=== PATIENT | female | born 1955 | race African-American/Black ===

== ENCOUNTER 2017-02-17 07:17 | Emergency (ER) | payer SELFPAY ==
[~2017-02-17 07:17] MED LIST: ACETAMINOPHEN PO; AUGMENTIN PO; DARVOCET-N 1001 TAB PO; DOXYCYCLINE PO; FLAGYL PO; KEFLEX PO; NO MEDICATIONS; PREPARATION H O60 GM PR; ULTRAM PO
== END 2017-02-17 07:55 | disposition home or self-care (01) ==
LOC: SED 07:17
DX: H10.9 Unspecified conjunctivitis (principal); F17.200 Nicotine dependence, unspecified, uncomplicated; Z88.0 Allergy status to penicillin; Z88.8 Allergy status to other drugs, medicaments and biological substances
CPT/HCPCS: 99283